=== PATIENT | male | born 1990 | race Caucasian/White ===

== ENCOUNTER → 2017-02-08 | Outpatient (CLI) | payer BC ==
--- NOTE | 2017-02-08 15:40 | DIAGNOSTIC IMAGING REPORT ---
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 No large elbow joint effusion or radiopaque foreign body. IMPRESSION: No acute bony abnormality. The above report was generated using voice recognition software. It may contain grammatical, syntax or spelling errors. Electronically signed by: Jem [place] 02/08/2017 3:39 PM Dictated Date/Time: 02/08/2017 3:37 PM
--- NOTE | 2017-02-08 16:03 | DIAGNOSTIC IMAGING REPORT ---
LEFT HAND 3 VIEWS CLINICAL HISTORY: Left hand injury. FINDINGS: 3 views of the left hand are obtained. No prior studies are available for comparison at the time of dictation. The skeletal structures are well mineralized. No fracture is seen. The joint spaces of the hand are well-maintained. The overlying soft tissues are normal in appearance. IMPRESSION: No acute bony abnormality is seen in the left hand. Electronically signed by: Rene Stallworth M.D. 02/08/2017 4:02 PM Dictated Date/Time: 02/08/2017 4:01 PM
--- NOTE | 2017-02-08 16:40 | DIAGNOSTIC IMAGING REPORT ---
CERVICAL SPINE 3 VIEWS CLINICAL HISTORY: Neck pain. FINDINGS: AP, lateral, and odontoid views of the cervical spine are obtained. No prior studies are available for comparison at the time of dictation. The skeletal structures are well mineralized. There is no radiographic evidence of fracture or subluxation. The odontoid process and lateral masses appear intact on the open mouth view. The spinolaminar line is preserved. Vertebral body height and alignment are maintained. The spinous processes appear intact. The intervertebral disc spaces are normal. The prevertebral soft tissues are within normal limits. Visualized apical lung parenchyma appears clear. IMPRESSION: No acute bony abnormality is seen involving the cervical spine. Electronically signed by: Rene Stallworth M.D. 02/08/2017 4:39 PM Dictated Date/Time: 02/08/2017 4:38 PM
== END | disposition home or self-care (01) ==
LOC: C.RADPV 14:54
PROVIDERS: ATTEND Nurse Practitioner
DX: S69.90XA Unspecified injury of unspecified wrist, hand and finger(s), initial encounter (principal); X58.XXXA Exposure to other specified factors, initial encounter